=== PATIENT | female | born 1950 | race Caucasian/White ===

== ENCOUNTER → 2017-01-06 | Outpatient (CLI) | payer MEDICARE, OTHER ==
[~2017-01-06] VITALS: Ht 160 cm; Wt 86.2 kg
[~2017-01-06] MED LIST: ASPI1TAB PO; BILB30CA2 PO; CALC600T10 PO; CARV12.5 PO; CHLO25TA PO; CINN500C9 PO; CO Q100C10 PO; CORE25TA PO; DIGO0.25 PO; FISH100049 PO; FLEC50TA PO; FURO40TA2 PO; LEVO25TA5 PO; LIDOCAINE 2% INJ 100 MG/5 ML SDV (FOR ANES.) As Ordered ONE; LOSA100T36 PO; METF-699 PO; NEXI20CA PO; NS 1,000 ML IV SCH; OYST500T50 PO; PROPOFOL 200 MG/20 ML VIAL As Ordered ONE; SIMV10TA2 PO; SPIR25TA2 PO; XARE20TA PO
--- NOTE | 2017-01-06 07:46 | ROOR ---
Patient Name: Shira Rodas Procedure Date: 01/06/2017 7:29 AM Date of : 1950 Age: 66 Room: [facility] Gender: Female Note Status: Finalized Procedure: Upper GI endoscopy Indications: Follow-up of Jimenez's esophagus Providers: Jose Daniel RONQUILLO MD Referring MD: TY CRAWFORD MD Requesting Provider: Medicines: Monitored Anesthesia Care Complications: No immediate complications. Procedure: Pre-Anesthesia Assessment: - The heart rate, respiratory rate, oxygen saturations, blood pressure, adequacy of pulmonary ventilation, and response to care were monitored throughout the procedure. The Endoscope was introduced through the mouth, and advanced to the second part of duodenum. The upper GI endoscopy was accomplished without difficulty. The patient tolerated the procedure well. Findings: The Z-line was variable and was found 35 cm from the incisors. This was biopsied with a cold forceps for histology. The examined esophagus was normal. Small Hiatal Hernia. Multiple 5 to 6 mm semi-sessile fundic gland polyps were found in the gastric body. This was biopsied with a cold forceps for histology. The examined duodenum was normal. Impression: - Normal esophagus with Z-line variable, 35 cm from the incisors. Biopsied. - Small Hiatal Hernia. - Normal stomach with multiple fundic gland polyps. Biopsied. - Normal examined duodenum. Recommendation: - Observe patient's clinical course. - Continue present medications. - Follow an antireflux regimen. - Telephone endoscopist for pathology results in 2 weeks. Jose Daniel Ronquillo MD Jose Daniel RONQUILLO MD 01/06/2017 7:45:33 AM This report has been signed electronically. Number of Addenda: 0 Note Initiated On: 01/06/2017 7:29 AM Estimated Blood Loss: Estimated blood loss: none.
[2017-01-06 08:05] VITALS: BP 123/70
== END ==
LOC: M OPP 06:58
PROVIDERS: ATTEND Internal Medicine Gastroenterology
DX: Z09 Encounter for follow-up examination after completed treatment for conditions other than malignant neoplasm (principal); K22.70 Barrett's esophagus without dysplasia; K22.8 Other specified diseases of esophagus; K44.9 Diaphragmatic hernia without obstruction or gangrene; K31.7 Polyp of stomach and duodenum; I10 Essential (primary) hypertension; I48.91 Unspecified atrial fibrillation; E11.9 Type 2 diabetes mellitus without complications; M51.9 Unspecified thoracic, thoracolumbar and lumbosacral intervertebral disc disorder; E78.00 Pure hypercholesterolemia, unspecified; E03.9 Hypothyroidism, unspecified; M19.90 Unspecified osteoarthritis, unspecified site; Z96.651 Presence of right artificial knee joint; Z79.899 Other long term (current) drug therapy; Z79.84 Long term (current) use of oral hypoglycemic drugs; Z79.02 Long term (current) use of antithrombotics/antiplatelets; Z88.5 Allergy status to narcotic agent; Z88.8 Allergy status to other drugs, medicaments and biological substances

== ENCOUNTER → 2017-03-16 | Outpatient (CLI) | payer MEDICARE, OTHER ==
[~2017-03-16] MED LIST changes: -LIDOCAINE 2% INJ 100 MG/5 ML SDV (FOR ANES.) As Ordered ONE; -NS 1,000 ML IV SCH; -PROPOFOL 200 MG/20 ML VIAL As Ordered ONE
--- NOTE | 2017-03-16 13:21 | REPMRS ---
Patient History The patient states she had a clinical breast exam in December 2016. Patient is postmenopausal. Family history of breast cancer in maternal grandmother at age 55, unknown cancer in brother at age 47, colorectal cancer in paternal uncle at age 50 or over, and unknown cancer in paternal unspecified at age 1. Took hormonal contraceptives for 2 years. Took unspecified hormones for 2 years. Digital Mammo Screening Bilat: March 16, 2017 - Exam #: [id number] Bilateral CC and MLO view(s) were taken. Technologist: Noemí Parrish, Technologist Prior study comparison: February 28, 2016, bilateral digital mammo screening bilat performed at [facility]. October 05, 2014, bilateral bilat screen digital mammo, performed at [facility] ([facility]). August 25, 2013, bilateral bilat screen digital mammo, performed at [facility] ([facility]). FINDINGS: There are scattered fibroglandular densities. There has been no change in the appearance of the mammogram from the prior studies. There is a mild amount of scattered fibroglandular density which is fairly symmetric. There is no interval development of dominant mass, architectural distortion, or clustered microcalcification suggestive of malignancy. ASSESSMENT: BI-RADS/ACR category 1 mammogram. Negative. Recommendation Routine screening mammogram in 1 year (for women over age 40). This mammogram was interpreted with the aid of an FDA-approved computer-aided dectection system. Electronically Signed By: Nicholas Adam MD 03/16/17 [id number]
== END ==
LOC: M RAD 11:49
PROVIDERS: ATTEND Obstetrics & Gynecology
DX: Z12.31 Encounter for screening mammogram for malignant neoplasm of breast (principal); Z78.0 Asymptomatic menopausal state; Z80.3 Family history of malignant neoplasm of breast; Z92.0 Personal history of contraception; Z92.29 Personal history of other drug therapy; Z80.0 Family history of malignant neoplasm of digestive organs

== ENCOUNTER → 2018-02-16 | Outpatient (CLI) | payer MEDICARE, OTHER ==
[2018-02-16 12:18] LABS: BASO # 0.1 10^3/uL (0.0-0.2); BASO % 0.6 % (0.0-1.0); EOS # 0.2 10^3/uL (0.0-0.50); EOS % 1.7 % (0.0-3.0); HEMATOCRIT 36.9 % (36.0-47.0); HEMOGLOBIN 11.4 g/dl (12.0-15.5); IMMATURE GRANULOCYTE % 0.3 % (0-3.0); LYMPH # 2.1 10^3/uL (1.5-4.5); LYMPH % 20.5 % (24.0-44.0); MEAN CORPUSCULAR HEMOGLOBIN 25.7 pg (27.0-33.0); MEAN CORPUSCULAR HGB CONC 30.9 g/dl (32.0-36.5); MEAN CORPUSCULAR VOLUME 83.1 fl (80.0-96.0); MONO # 0.9 10^3/uL (0.0-0.8); MONO % 8.5 % (0.0-5.0); NEUTROPHILS # 7.1 10^3/uL (1.8-7.7); NEUTROPHILS % 68.4 % (36.0-66.0); PLATELET COUNT, AUTOMATED 389 10^3/uL (150-450); RED BLOOD COUNT 4.44 10^6/uL (4.00-5.40); RED CELL DISTRIBUTION WIDTH 13.9 % (11.5-14.5); WHITE BLOOD COUNT 10.4 10^3/uL (4.0-10.0)
[2018-02-16 13:08] LABS: IRON (FE) 42 UG/DL (50-170); PERCENT SATURATION 8.7 % (13.2-45.0); TOTAL IRON BINDING CAPACITY 481 UG/DL (250-450)
[2018-02-17 14:16] LABS: TISSUE TRANSGLUTAMINASE IgA <2 U/mL (0-3)
== END ==
LOC: M LAB 11:44
DX: D50.9 Iron deficiency anemia, unspecified (principal)
CPT/HCPCS: 83550

== ENCOUNTER 2018-03-08 09:53 | Day surgery (SDC) | payer MEDICARE, OTHER ==
[~2018-03-08 09:53] MED LIST changes: -ASPI1TAB PO; -BILB30CA2 PO; -CALC600T10 PO; -CARV12.5 PO; -CHLO25TA PO; -CINN500C9 PO; -CO Q100C10 PO; -CORE25TA PO; -DIGO0.25 PO; -FISH100049 PO; -FLEC50TA PO; -FURO40TA2 PO; -LEVO25TA5 PO; +LIDOCAINE 2% INJ 100 MG/5 ML SDV (FOR ANES.) As Ordered; -LOSA100T36 PO; -METF-699 PO; -NEXI20CA PO; -OYST500T50 PO; +PROPOFOL 500 MG/50 ML VIAL As Ordered; -SIMV10TA2 PO; -SPIR25TA2 PO; -XARE20TA PO
[2018-03-08] MEDS ORDERED: fentaNYL 100 MCG/2 ML INJECTION (J3010) As Ordered (10:11)
[2018-03-08] MEDS ORDERED: NS 1,000 ML IV (10:30)
== END 2018-03-08 11:40 | disposition home or self-care (01) ==
LOC: M OPP 09:53
DX: D50.9 Iron deficiency anemia, unspecified (principal); K22.8 Other specified diseases of esophagus; K31.7 Polyp of stomach and duodenum; I48.91 Unspecified atrial fibrillation; I10 Essential (primary) hypertension; E78.5 Hyperlipidemia, unspecified; Z86.19 Personal history of other infectious and parasitic diseases; Q24.9 Congenital malformation of heart, unspecified; E11.9 Type 2 diabetes mellitus without complications; E03.9 Hypothyroidism, unspecified; K44.9 Diaphragmatic hernia without obstruction or gangrene; K22.70 Barrett's esophagus without dysplasia; K21.9 Gastro-esophageal reflux disease without esophagitis; M19.90 Unspecified osteoarthritis, unspecified site; M54.5 Low back pain; B37.2 Candidiasis of skin and nail; G47.30 Sleep apnea, unspecified; R06.02 Shortness of breath; R06.83 Snoring; Z96.652 Presence of left artificial knee joint; Z88.5 Allergy status to narcotic agent; Z88.8 Allergy status to other drugs, medicaments and biological substances; Z79.01 Long term (current) use of anticoagulants; Z79.899 Other long term (current) drug therapy; Z79.84 Long term (current) use of oral hypoglycemic drugs; Z80.3 Family history of malignant neoplasm of breast; Z80.8 Family history of malignant neoplasm of other organs or systems; Z80.0 Family history of malignant neoplasm of digestive organs
CPT/HCPCS: 45378

== ENCOUNTER → 2018-03-19 | Outpatient (CLI) | payer MEDICARE, OTHER ==
[2018-03-19 17:43] LABS: ANION GAP 5 MEQ/L (8-16); BLOOD UREA NITROGEN 17 MG/DL (7-18); CALCIUM LEVEL 9.1 MG/DL (8.8-10.2); CARBON DIOXIDE LEVEL 31 MEQ/L (21-32); CHLORIDE LEVEL 108 MEQ/L (98-107); GLOMERULAR FILTRATION RATE > 60.0 (>39); GLUCOSE, FASTING 143 MG/DL (70-100); POTASSIUM SERUM 4.3 MEQ/L (3.5-5.1); SODIUM LEVEL 144 MEQ/L (136-145)
[2018-03-19 19:04] LABS: AMORPHOUS SEDIMENT LARGE (NEGATIVE); BACTERIA, URINE AUTO NEGATIVE (NEGATIVE); CALCIUM OXALATE CRYSTALS LARGE; MUCUS, URINE SMALL (NEGATIVE); RBC, URINE AUTO 5 /HPF (0-3); SQUAMOUS EPITHELIAL CELL UR AU 1 /HPF (0-6); WBC, URINE AUTO 1 /HPF (0-3)
== END ==
LOC: M SMT 14:08
DX: R31.9 Hematuria, unspecified (principal)
CPT/HCPCS: 80048

== ENCOUNTER → 2018-03-19 | Outpatient (CLI) | payer MEDICARE, OTHER | LOC: M RAD 11:03 | DX: Z12.31 Encounter for screening mammogram for malignant neoplasm of breast (principal); Z78.0 Asymptomatic menopausal state; Z92.0 Personal history of contraception; Z92.29 Personal history of other drug therapy; Z80.3 Family history of malignant neoplasm of breast; R31.9 Hematuria, unspecified | CPT/HCPCS: 77067 ==

== ENCOUNTER → 2018-04-06 | Outpatient (CLI) | payer MEDICARE, OTHER ==
[~2018-04-06] MED LIST changes: +ISOVUE-370 76% 100ML VIAL (Q9967) As Ordered; -LIDOCAINE 2% INJ 100 MG/5 ML SDV (FOR ANES.) As Ordered; -PROPOFOL 500 MG/50 ML VIAL As Ordered
== END ==
LOC: M RAD 11:12
DX: R31.9 Hematuria, unspecified (principal); K57.30 Diverticulosis of large intestine without perforation or abscess without bleeding; D35.00 Benign neoplasm of unspecified adrenal gland
CPT/HCPCS: Q9967

== ENCOUNTER → 2018-10-15 | Outpatient (CLI) | payer MEDICARE, OTHER | LOC: M RAD 12:51 | DX: I65.23 Occlusion and stenosis of bilateral carotid arteries (principal) | CPT/HCPCS: 93880 ==

== ENCOUNTER → 2019-03-24 | Outpatient (CLI) | payer MEDICARE, OTHER ==
[~2019-03-24] MED LIST changes: +ASPI81TA26 PO; +BILB30CA2 PO; +CALC600T31 PO; +CARV12.5 PO; +CHLO25TA PO; +CINN500C9 PO; +CO Q100C10 PO; +CORE25TA PO; +DIGO0.25 PO; +FISH100049 PO; +FLEC50HA PO; +FURO40TA2 PO; -ISOVUE-370 76% 100ML VIAL (Q9967) As Ordered; +LEVO25TA5 PO; +LOSA100T50 PO; +METF-699 PO; +NEXI20CA PO; +OYST500T50 PO; +PROBCAP4 PO; +PROT1TAB2 PO; +SIMV10TA2 PO; +SPIR-10 PO; +VITA-5 PO; +XARE20TA PO
--- NOTE | 2019-03-24 12:31 | REPMRS ---
Patient History The patient states she has not had a clinical breast exam in over a year. Family history of breast cancer at age 55 in maternal grandmother, unknown cancer at age 47 in brother, colorectal cancer at age 50 or over in paternal uncle, unknown cancer at age 1 in paternal unspecified relative. Took hormonal contraceptives for 2 years. Took unspecified hormones for 2 years. Digital Mammo Screening Bilat: March 24, 2019 - Exam #: [id number] Bilateral CC and MLO view(s) were taken. Technologist: Noemí Parrish, Technologist Prior study comparison: March 19, 2018, bilateral digital mammo screening bilat performed at [facility]. March 16, 2017, bilateral digital mammo screening bilat performed at [facility]. FINDINGS: There are scattered fibroglandular densities. There has been no change in the appearance of the mammogram from the prior studies. There is a mild amount of residual fibroglandular tissue which is fairly symmetric. There is no interval development of dominant mass, architectural distortion, or clustered microcalcification suggestive of malignancy. Assessment: BI-RADS/ACR category 1 mammogram. Negative Mammogram. Recommendation Routine screening mammogram in 1 year (for women over age 40). This mammogram was interpreted with the aid of an FDA-approved computer-aided dectection system. Electronically Signed By: Han Bell MD 03/24/19 [id number]
== END ==
LOC: M RAD 11:08
PROVIDERS: ATTEND Internal Medicine
DX: Z12.31 Encounter for screening mammogram for malignant neoplasm of breast (principal); Z80.3 Family history of malignant neoplasm of breast; Z80.0 Family history of malignant neoplasm of digestive organs

== ENCOUNTER → 2019-06-02 | Outpatient (REF) | payer MEDICARE, OTHER ==
[2019-06-02 18:15] LABS: BACTERIA, URINE AUTO NEGATIVE (NEGATIVE); RBC, URINE AUTO 5 /HPF (0-3); SQUAMOUS EPITHELIAL CELL UR AU 0 /HPF (0-6); WBC, URINE AUTO 2 /HPF (0-3)
== END ==
LOC: M SMT 17:28
PROVIDERS: ATTEND Specialist
DX: R31.9 Hematuria, unspecified (principal)
CPT/HCPCS: 81015; 87086; 88108; G0463

== ENCOUNTER → 2019-11-21 | Outpatient (CLI) | payer MEDICARE, OTHER ==
[~2019-11-21] MED LIST changes: -SIMV10TA2 PO; +SIMV10TA21 PO
== END ==
LOC: M WHC 12:52
PROVIDERS: ATTEND Registered Nurse
DX: M81.0 Age-related osteoporosis without current pathological fracture (principal)

== ENCOUNTER → 2019-12-06 | Outpatient (CLI) | payer MEDICARE, OTHER ==
--- NOTE | 2019-12-07 07:26 | REPVR ---
PROCEDURE INFORMATION: Exam: CT Maxillofacial Without Contrast, Sinus Exam date and time: 12/06/2019 3:02 PM Age: 69 years old Clinical indication: Sinusitis; Chronic; Additional info: Chronic pansinusitis TECHNIQUE: Imaging protocol: CT Maxillofacial without contrast. Focus on the sinuses. Radiation optimization: All CT scans at this facility use at least one of these dose optimization techniques: automated exposure control; mA and/or kV adjustment per patient size (includes targeted exams where dose is matched to clinical indication); or iterative reconstruction. COMPARISON: CT Maxilofacial w/out contrast 11/23/2015 1:07 PM FINDINGS: Frontal sinuses: There is mild mucosal thickening along the floor of the left frontal sinus. Ethmoid air cells: There is opacification of left anterior ethmoid air cells. Sphenoid sinuses: Normal. No air-fluid levels. Maxillary sinuses: There is opacification of the left maxillary sinus. The left maxillary sinus infundibulum is obscured by mucosal thickening. Orbits: Orbits are normal. Globes are unremarkable. Nasal cavity/Septum: Unremarkable. Soft tissues: Unremarkable. Bones/joints: Unremarkable. IMPRESSION: Left-sided sinus mucosal disease. Underline polyposis is difficult to exclude. Electronically signed by: Kristie Fong On 12/07/2019 07:25:47 AM
== END ==
LOC: M RAD 14:52
PROVIDERS: ATTEND Otolaryngology
DX: J32.4 Chronic pansinusitis (principal)

== ENCOUNTER → 2020-04-24 | Outpatient (CLI) | payer MEDICARE, OTHER ==
--- NOTE | 2020-04-24 15:12 | REP ---
BILATERAL MAMMOGRAM WITH 3D TOMOSYNTHESIS: Family history of breast cancer in maternal grandmother at age 55. [facility] lifetime risk of breast cancer 5.0%. Comparison mammogram 03/24/2019 as well as other prior exams. Bilateral mammography performed in the MLO and CC projections with 3D tomosynthesis. Mild scattered fibroglandular tissue is present bilaterally. Volpara breast density is B. I suspect a fairly smooth, well marginated oval nodule in the inferomedial right breast somewhat posteriorly. This has a maximum diameter of 5-6 mm. No other new mass or clustered microcalcifications are seen. IMPRESSION: BIRADS 0: BI-RADS/ACR category 0 mammogram, Incomplete: Need additional imaging evaluation and/or prior mammograms for comparison. ACR 0 incomplete. Possible new oval nodule inferomedially in the posterior right breast. Recommend spot compression views and ultrasound to further evaluate. This mammogram was interpreted with the aid of an FDA-approved computer-aided detection system. A. Negative x-ray reports should not delay biopsy if a dominant or clinically suspicious mass is present. B. Four to eight percent of cancers are not identified by x-ray. C. Adenosis and dense breasts may obscure an underlying neoplasm. The patient states she/he had a clinical breast exam in March 2020. The patient letter being requested is M0
== END ==
LOC: M WHC 12:31
PROVIDERS: ATTEND Obstetrics & Gynecology
DX: Z12.31 Encounter for screening mammogram for malignant neoplasm of breast (principal); Z80.3 Family history of malignant neoplasm of breast; R92.8 Other abnormal and inconclusive findings on diagnostic imaging of breast

== ENCOUNTER → 2020-05-10 | Outpatient (CLI) | payer MEDICARE, OTHER ==
[~2020-05-10] MED LIST changes: -METF-699 PO; +METF-817 PO
--- NOTE | 2020-05-10 16:04 | REP ---
DIAGNOSTIC MAMMOGRAM, RIGHT BREAST AND RIGHT BREAST ULTRASOUND: Spot compression views of the right breast performed and correlated with the recent mammogram of 04/24/2020. There is confirmed a smoothly marginated nodule in the medial right breast measuring 5-6 mm in diameter. This is somewhat inferior and is located proximally 6-7 cm from the nipple. Real-time sonographic evaluation of the right breast performed medially. There is a 5 mm hypoechoic nodule at that location measuring 5 mm in diameter. It is oval in shape and corresponds to the mammographic abnormality. There is no definite internal blood flow with Doppler evaluation. It is not definitely a simple cyst. IMPRESSION: BIRADS 4: BI-RADS/ACR category 4 mammogram. Suspicious Abnormality - biopsy should be considered. ACR 4 suspicious. A 5 mm well-circumscribed nodule inferomedial right breast corresponds to a hypoechoic nodule by ultrasound, not a simple cyst. This may be a complex cyst. Recommend ultrasound-guided sampling. Patient letter being requested is M4.
== END ==
LOC: M WHC 12:54
PROVIDERS: ATTEND Obstetrics & Gynecology
DX: Z12.31 Encounter for screening mammogram for malignant neoplasm of breast (principal); N63.15 Unspecified lump in the right breast, overlapping quadrants

== ENCOUNTER → 2020-05-17 | Outpatient (CLI) | payer MEDICARE, OTHER | LOC: M PLALAB 13:06 | PROVIDERS: ATTEND Surgery | DX: Z13.79 Encounter for other screening for genetic and chromosomal anomalies (principal) ==

== ENCOUNTER → 2020-05-23 | Outpatient (CLI) | payer MEDICARE, OTHER ==
[2020-05-23 14:48] VITALS: BP 122/78
--- NOTE | 2020-05-23 15:24 | REP ---
FOCUSED RIGHT BREAST ULTRASOUND: HISTORY: Mass lower inner quadrant right breast. FINDINGS: Sonographic guidance is provided to Dr. Buenrostro who performed ultrasound-guided needle biopsy procedure with marker clip placement.
--- NOTE | 2020-05-23 16:49 | REP ---
DIGITAL DIAGNOSTIC UNILATERAL RIGHT BREAST MAMMOGRAPHY WITH CAD: TWO VIEWS. HISTORY: Right breast mass. Post biopsy clip placement. Comparison mammography, April 24, 2020. FINDINGS: Craniocaudal and mediolateral views of the right breast demonstrate a needle biopsy marker clip in the right breast inferior and medial quadrant in the previously noted location of the nodular density. There is post biopsy change in the superolateral aspect of the right breast as well with some skin thickening laterally on the craniocaudal view. No hematoma is appreciated. IMPRESSION: Marker clip in good position. This mammogram was interpreted with the aid of an FDA-approved computer-aided detection system.
--- NOTE | 2020-07-26 18:46 | ROOPDOC ---
[facility] Report Of Operation Report of Operation This is a late entry note for the encounter from the date 05/23/20. Delay is due to major systemwide [facility] computer outage. Procedure Date: 05/23/20 Dx: right breast mass and right skin lesion Procedure: right breast ultrasound guided biopsy with clip placement and excisional biopsy of right breast skin lesion Findings: Postbiopsy clip is seen in the right breast mammogram in expected position. Right breast excised skin lesion is 1.5 x0.5cm. Surgeon: Quincy Chowdhury Lidocaine 1% LOT [id number] Expiration 04/2023 Sodium Bicarbonate 8.4% LOT [id number] Expiration 04/2021 Hydromark clip LOT [id number] Expiration 12/2022 REF: SHAPE 4 Bx device: BARD [id number] x10 cm LOT [id number] Expiration 12/2022 Informed consent was obtained for right breast ultrasound guided right breast mass biopsy and right breast skin lesion excision. Patients anticoagulation was held appropriately. The most common risk and possible complications including bleeding, hematoma, bruising, infection, injury to surrounding structures were explained to the patient and she expressed understanding. Patient was placed on the bed in the supine position. Appropriate time out was done stating patients name, date of , and the procedure to be performed. We started the procedure with the right breast ultrasound guided procedure. The right breast was prepped and draped in the usual fashion. The ultrasound was used to confirm the location of the lesion in the right lower inner breast. Plain Lidocaine 1% and 8.4% sodium bicarbonate 10:1 mix was used to anesthetize the skin, the biopsy site and tissues along the anticipated biopsy tract. Small skin incision was made with blade number 11. BARD Marquee 14G cannula with introducer ([id number]) was inserted through the incision and advanced under the ultrasound guidance to position immediately adjacent to the lesion. Next, the introducer was removed and BARD Marquee 14G biopsy device was places in the cannula. Pre-biopsy imaging, and post-biopsy imaging were captured. Five good core biopsies were taken at various levels of the lesion. Specimen was placed in formaldehyde, labeled with appropriate biopsy site and patients name, and sent to pathology for evaluation. Next, the biopsy device was withdrawn and a clip introducer was inserted into the biopsy site via the cannula. The SHAPE 4 Hydromark clip was deployed under sonographic guidance. Post-clip placement image was captured. Manual pressure over the biopsy cavity and tract was held after the clip introducer was withdrawn. No bleeding was noted upon removal of the pressure. Steri Strips were placed over the incision site. At this time, we proceeded with the right lateral breast skin excisional biopsy. The right breast was re-prepped and re-draped in the usual fashion. Plain Lidocaine 1% and 8.4% sodium bicarbonate 10:1 mix was used to anesthetize the skin at the planned excisional biopsy site. Scalpel #15 was used to make a small elliptical incision to excise the right breast lesion. The lesion was completely excised. The skin defect measured 1.5 x 0.5 cm. The specimen was placed in formaldehyde, labeled with appropriate biopsy site and patients name, and sent to pathology for evaluation. Manual pressure over the incision site was held. Adequate hemostasis was achieved. The incision was closed with 4-0 Monocryl in terrupted stitches. Steri strips were placed over the incision. Post-biopsy mammogram of the right breast was obtained and showed clip in expected position. Postprocedural dressing was placed. Patient tolerated procedure well. Discharge instructions were discussed with the patient and she expressed understanding. QUINCY CHOWDHURY DO Jul 26, 2020 18:46
== END ==
LOC: M WHCPRO 12:54
PROVIDERS: ATTEND Surgery
DX: N60.11 Diffuse cystic mastopathy of right breast (principal); D23.5 Other benign neoplasm of skin of trunk

== ENCOUNTER → 2020-09-24 | Outpatient (CLI) | payer MEDICARE, OTHER ==
--- NOTE | 2020-09-24 13:40 | REP ---
INDICATION: EVAL ORIGINAL BX TARGET,ABN RT MAMMO,RT MASS; EVAL ORIGINAL BX TARGET, ABN RT MAMMO, RT MASS. COMPARISON: 04/24/2020, 05/10/2020 and 05/23/2020. TECHNIQUE: MLO, mL and CC views right breast performed with tomosynthesis. Focused right breast ultrasound performed at 4 o'clock. FINDINGS: Mild fibroglandular tissue is again noted in the right breast. The previously noted oval smoothly marginated nodule in the inner right breast is no longer visualized status post ultrasound-guided biopsy. A biopsy clip is seen just anterior to the site of the prior nodule. No new nodule or clustered microcalcifications are seen. Focused right breast ultrasound at 4 o'clock demonstrates no evidence of the previously identified hypoechoic nodule. The biopsy clip is noted. IMPRESSION: BIRADS/ACR category 2 benign. Previously noted nodule has resolved both mammographically and sonographically. A biopsy clip is seen at 4 o'clock position right breast status post ultrasound-guided biopsy of the nodule. This mammogram was interpreted with the aid of an FDA-approved computer-aided detection system. The patient letter being requested is M 1. RECOMMENDATION: Recommend routine bilateral screening mammography April of 2021. <Electronically signed by Han Bell > 09/24/20 [id number]
== END ==
LOC: M WHC 10:36
PROVIDERS: ATTEND Surgery
DX: R92.8 Other abnormal and inconclusive findings on diagnostic imaging of breast (principal); Z97.8 Presence of other specified devices
CPT/HCPCS: 76642; 77065; G0279

== ENCOUNTER → 2021-02-18 | Outpatient (REF) | payer MEDICARE, OTHER ==
[2021-02-18 19:20] LABS: APPEARANCE, URINE CLEAR (CLEAR); BACTERIA, URINE AUTO NEGATIVE (NEGATIVE); BILIRUBIN, URINE AUTO NEGATIVE (NEGATIVE); BLOOD, URINE BLOOD 2+ (NEGATIVE); COLOR, URINE COLORLESS (YELLOW); GLUCOSE, URINE (UA) AUTO NEGATIVE (NEGATIVE); KETONE, URINE AUTO NEGATIVE (NEGATIVE); LEUKOCYTE ESTERASE, URINE AUTO NEGATIVE (NEGATIVE); NITRITE, URINE AUTO NEGATIVE (NEGATIVE); PROTEIN, URINE AUTO NEGATIVE (NEGATIVE); RBC, URINE AUTO 1 /HPF (0-3); SPECIFIC GRAVITY URINE AUTO 1.006 (1.002-1.035); SQUAMOUS EPITHELIAL CELL UR AU 1 /HPF (0-6); UROBILINOGEN, URINE AUTO 0.2 mg/dL (0.0-2.0); WBC, URINE AUTO 0 /HPF (0-3)
== END ==
LOC: M SMT 16:39
PROVIDERS: ATTEND Nurse Practitioner Women's Health
DX: R31.29 Other microscopic hematuria (principal)
CPT/HCPCS: 81001; 87086; G0463

== ENCOUNTER → 2021-05-24 | Outpatient (CLI) | payer MEDICARE, OTHER ==
--- NOTE | 2021-05-24 12:00 | REPMRS ---
Patient History The patient states she had a clinical breast exam in April 2021. Family history of breast cancer at age 55 in maternal grandmother, unknown cancer at age 47 in brother, colorectal cancer at age 50 or over in paternal uncle, unknown cancer at age 1 in paternal unspecified relative. Benign US guided breast biopsy. of the right breast, May 23, 2020. Took hormonal contraceptives for 2 years. Took unspecified hormones for 2 years. Patient states no breast complaints today. Patient has signed MRS History Sheet. Digital Woman Screen Mammo: May 24, 2021 - Exam #: [id number] Bilateral CC and MLO view(s) were taken. Technologist: Roya Quintanilla, Technologist Prior study comparison: September 24, 2020, right breast diagnostic unilateral mammo performed at [facility]. May 23, 2020, right breast diagnostic unilateral mammo performed at [facility]. April 24, 2020, bilateral digital woman screen mammo performed at [facility]. FINDINGS: There are scattered fibroglandular densities. The Volpara volumetric breast density category is:B. There is a needle biopsy marker clip again noted in the right breast unchanged. There is a stable nodular opacity in the left breast unchanged. There has been no change in the appearance of the mammogram from the prior studies. There is a mild amount of scattered fibroglandular density which is fairly symmetric. There is no interval development of dominant mass, architectural distortion, or grouped microcalcification suggestive of malignancy. 3-D tomosynthesis shows no additional findings. Assessment: BI-RADS/ACR category 2 mammogram. Benign Findings. Recommendation Routine screening mammogram of both breasts in 1 year (for women over age 40). This patient's [facility] Lifetime Breast Cancer Risk is estimated at 4.7 %. This mammogram was interpreted with the aid of an FDA-approved computer-aided dectection system. Electronically Signed By: Nicholas Adam MD 05/24/21 1200
== END ==
LOC: M WHC 11:02
PROVIDERS: ATTEND Obstetrics & Gynecology
DX: Z12.31 Encounter for screening mammogram for malignant neoplasm of breast (principal)

== ENCOUNTER → 2021-09-03 | Outpatient (REF) | payer MEDICARE, OTHER | LOC: M LAB REF 16:32 | PROVIDERS: ATTEND Internal Medicine | DX: I12.9 Hypertensive chronic kidney disease with stage 1 through stage 4 chronic kidney disease, or unspecified chronic kidney disease (principal); N18.31 Chronic kidney disease, stage 3a ==

== ENCOUNTER → 2021-12-04 | Outpatient (REF) | payer MEDICARE, OTHER ==
[~2021-12-04] MED LIST changes: +LOSA100T45 PO; -LOSA100T50 PO
[2021-12-04 16:54] LABS: BACTERIA, URINE AUTO NEGATIVE (NEGATIVE); RBC, URINE AUTO 0 /HPF (0-3); SQUAMOUS EPITHELIAL CELL UR AU 1 /HPF (0-6); WBC, URINE AUTO 0 /HPF (0-3)
== END ==
LOC: M LAB REF 16:32
PROVIDERS: ATTEND Internal Medicine
DX: R31.9 Hematuria, unspecified (principal)

== ENCOUNTER → 2021-12-05 | Outpatient (CLI) | payer MEDICARE, OTHER | LOC: M RAD 11:21 | PROVIDERS: ATTEND Physician Assistant | DX: I65.23 Occlusion and stenosis of bilateral carotid arteries (principal) ==

== ENCOUNTER → 2021-12-30 | Outpatient (CLI) | payer MEDICARE, OTHER | LOC: M LABSMTC 10:04 | PROVIDERS: ATTEND Anesthesiology | DX: Z01.812 Encounter for preprocedural laboratory examination (principal); Z20.822 Contact with and (suspected) exposure to COVID-19 ==

== ENCOUNTER 2022-01-03 06:45 | Day surgery (SDC) | payer MEDICARE, OTHER ==
[~2022-01-03] VITALS: Ht 157.5 cm; Wt 93.4 kg
[~2022-01-03 06:45] MED LIST changes: +CINN500C12 PO; +JARD1TAB PO; +LIDOCAINE 2% 100MG/5ML SDV (FOR ANES.) As Ordered ONE; +NS 1,000 ML IV ONE; +OMEP1CAP73 PO; +VITA100093 PO; +fentaNYL 100 MCG/2 ML INJECTION As Ordered ONE; +propofoL 200 MG/20 ML VIAL As Ordered ONE
[2022-01-03] MEDS ORDERED: ONDANSETRON 4MG/2ML VIAL IV ONE (09:30)
[2022-01-03] MEDS: SODIUM CHLORIDE 0.9% 1000ML IV SCH ×2 (09:35→09:40)
[2022-01-03 09:59] VITALS: BP 177/76
== END 2022-01-03 10:25 | disposition home or self-care (01) ==
LOC: M OPP 06:45
PROVIDERS: ATTEND Internal Medicine Gastroenterology
DX: K31.7 Polyp of stomach and duodenum (principal); K22.89 Other specified disease of esophagus; K22.70 Barrett's esophagus without dysplasia; R12 Heartburn; I50.9 Heart failure, unspecified; Z79.899 Other long term (current) drug therapy; Z88.4 Allergy status to anesthetic agent; Z88.5 Allergy status to narcotic agent; Z88.8 Allergy status to other drugs, medicaments and biological substances; Z80.0 Family history of malignant neoplasm of digestive organs; Z80.3 Family history of malignant neoplasm of breast; Z82.69 Family history of other diseases of the musculoskeletal system and connective tissue
CPT/HCPCS: 43239; 43251; 88305; J2405; J3010

== ENCOUNTER → 2022-01-09 | Outpatient (REF) | payer MEDICARE, OTHER ==
[~2022-01-09] MED LIST changes: -LIDOCAINE 2% 100MG/5ML SDV (FOR ANES.) As Ordered ONE; -NS 1,000 ML IV ONE; -fentaNYL 100 MCG/2 ML INJECTION As Ordered ONE; -propofoL 200 MG/20 ML VIAL As Ordered ONE
== END ==
LOC: M LAB REF 16:23
PROVIDERS: ATTEND Internal Medicine
DX: E11.65 Type 2 diabetes mellitus with hyperglycemia (principal); Z79.899 Other long term (current) drug therapy

== ENCOUNTER → 2022-04-23 | Outpatient (REF) | payer MEDICARE, OTHER ==
[2022-04-23 18:34] LABS: APPEARANCE, URINE CLEAR (CLEAR); BACTERIA, URINE AUTO NEGATIVE (NEGATIVE); BILIRUBIN, URINE AUTO NEGATIVE (NEGATIVE); BLOOD, URINE BLOOD 2+ (NEGATIVE); COLOR, URINE YELLOW (YELLOW); GLUCOSE, URINE (UA) AUTO 3+ mg/dL (NEGATIVE); KETONE, URINE AUTO NEGATIVE (NEGATIVE); LEUKOCYTE ESTERASE, URINE AUTO NEGATIVE (NEGATIVE); NITRITE, URINE AUTO NEGATIVE (NEGATIVE); PROTEIN, URINE AUTO NEGATIVE (NEGATIVE); RBC, URINE AUTO 1 /HPF (0-3); SQUAMOUS EPITHELIAL CELL UR AU 0 /HPF (0-6); UROBILINOGEN, URINE AUTO 0.2 mg/dL (0.0-2.0); WBC, URINE AUTO 1 /HPF (0-3)
== END ==
LOC: M LAB REF 16:17
PROVIDERS: ATTEND Obstetrics & Gynecology
DX: Z01.419 Encounter for gynecological examination (general) (routine) without abnormal findings (principal)

== ENCOUNTER → 2022-06-24 | Outpatient (CLI) | payer MEDICARE, OTHER | LOC: M WHC 10:34 | PROVIDERS: ATTEND Obstetrics & Gynecology | DX: Z12.31 Encounter for screening mammogram for malignant neoplasm of breast (principal) ==

== ENCOUNTER → 2022-12-15 | Outpatient (REF) | payer MEDICARE, OTHER ==
[2022-12-15 17:39] LABS: APPEARANCE, URINE MANUAL CLEAR (CLEAR); BILIRUBIN, URINE MANUAL NEGATIVE (NEGATIVE); BLOOD URINE MANUAL POSITIVE (NEGATIVE); COLOR, URINE MANUAL COLORLESS (YELLOW); GLUCOSE, URINE (UA) MANUAL 4+(1000 MG/DL) mg/dL (NEGATIVE); KETONE, URINE MANUAL NEGATIVE (NEGATIVE); LEUKOCYTE ESTERASE, URINE MAN NEGATIVE (NEGATIVE); NITRITE, URINE MANUAL NEGATIVE (NEGATIVE); PROTEIN, URINE MANUAL NEGATIVE (NEGATIVE); SPECIFIC GRAVITY,URINE MANUAL 1.015 (1.002-1.035); UROBILINOGEN, URINE MANUAL NORMAL (NORMAL)
[2022-12-15 18:38] LABS: SQUAMOUS EPITHELIAL CELL URINE SMALL AMOUNT /hpf (SMALL AMT); WBC, URINE 0-1 /hpf (0-3)
[2022-12-15 18:39] LABS: BACTERIA, URINE SMALL AMOUNT
== END ==
LOC: M LAB REF 16:23
PROVIDERS: ATTEND Internal Medicine
DX: R31.9 Hematuria, unspecified (principal)

== ENCOUNTER → 2023-03-27 | Outpatient (REF) | payer MEDICARE, OTHER ==
[~2023-03-27] MED LIST changes: -LOSA100T45 PO; +LOSA100T46 PO
[2023-03-27 12:49] LABS: APPEARANCE, URINE CLEAR (CLEAR); BACTERIA, URINE AUTO NEGATIVE (NEGATIVE); BILIRUBIN, URINE AUTO NEGATIVE (NEGATIVE); BLOOD, URINE BLOOD 2+ (NEGATIVE); COLOR, URINE STRAW (YELLOW); GLUCOSE, URINE (UA) AUTO 3+ mg/dL (NEGATIVE); KETONE, URINE AUTO NEGATIVE (NEGATIVE); LEUKOCYTE ESTERASE, URINE AUTO NEGATIVE (NEGATIVE); NITRITE, URINE AUTO NEGATIVE (NEGATIVE); PROTEIN, URINE AUTO NEGATIVE (NEGATIVE); RBC, URINE AUTO 1 /HPF (0-3); SPECIFIC GRAVITY URINE AUTO 1.006 (1.002-1.035); SQUAMOUS EPITHELIAL CELL UR AU 1 /HPF (0-6); UROBILINOGEN, URINE AUTO 0.2 mg/dL (0.0-2.0); WBC, URINE AUTO 1 /HPF (0-3)
== END ==
LOC: M LAB REF 12:10
PROVIDERS: ATTEND Internal Medicine
DX: R31.9 Hematuria, unspecified (principal)

== ENCOUNTER → 2023-06-26 | Outpatient (CLI) | payer MEDICARE, OTHER | LOC: M WHC 10:57 | PROVIDERS: ATTEND Internal Medicine | DX: Z12.31 Encounter for screening mammogram for malignant neoplasm of breast (principal) ==

== ENCOUNTER 2023-08-07 14:20 | Emergency (ER) | payer MEDICARE, OTHER ==
[~2023-08-07] VITALS: Ht 157.5 cm; Wt 95.8 kg
[2023-08-07 14:22] VITALS: BP 142/74; TEMP 98.2; O2SAT 95
== END 2023-08-07 18:22 | disposition home or self-care (01) ==
LOC: M ED 14:20
DX: S52.591A Other fractures of lower end of right radius, initial encounter for closed fracture (principal); S52.614A Nondisplaced fracture of right ulna styloid process, initial encounter for closed fracture; W19.XXXA Unspecified fall, initial encounter; Y92.481 Parking lot as the place of occurrence of the external cause; E11.9 Type 2 diabetes mellitus without complications; I48.91 Unspecified atrial fibrillation; Z79.01 Long term (current) use of anticoagulants; Z79.899 Other long term (current) drug therapy; Z88.5 Allergy status to narcotic agent; Z88.8 Allergy status to other drugs, medicaments and biological substances

== ENCOUNTER 2023-08-12 08:18 | Day surgery (SDC) | payer MEDICARE, OTHER ==
[~2023-08-12] VITALS: Ht 157.5 cm; Wt 96.7 kg
[~2023-08-12 08:18] MED LIST changes: +UNRESOLVED CLARIFICATION ENTRY XX SCH; +ceFAZolin SOD 2 GM in IV 1 EA IV ONE
[2023-08-12] MEDS ORDERED: LR 1,000 ML IV SCH (08:55)
[2023-08-12] MEDS ORDERED: MIDAZOLAM INJ 2MG/2ML VIAL IV PRN (09:40)
[2023-08-12] MEDS ORDERED: LIDOCAINE 1% SDV 5ML VIAL PN ONE (09:40)
[2023-08-12] MEDS ORDERED: ROPIvacaine 0.5% 30ML VIAL PN ONE (09:40)
[2023-08-12] MEDS ORDERED: fentaNYL 100 MCG/2 ML INJECTION IV PRN (09:40)
[2023-08-12] MEDS ORDERED: EPINEPHrine INJ 1 MG/ML 1ML AMP PN ONE (09:40)
[2023-08-12] MEDS ORDERED: dexAMETHasone 10MG/1ML VIAL PRES.FREE PN ONE (09:40)
[2023-08-12] MEDS: MIDAZOLAM INJ 2MG/2ML VIAL IV PRN ×2 (10:03→10:11)
[2023-08-12] MEDS ORDERED: SCOPOLAMINE 1MG TRANSDERMAL PATCH TOP ONE (11:10)
[2023-08-12] MEDS ORDERED: BACITRACIN OINTMENT 30GM TUBE As Ordered ONE (11:11)
[2023-08-12] MEDS ORDERED: ACETAMINOPHEN 1000MG 100ML IV BAG As Ordered ONE (11:47)
[2023-08-12] MEDS ORDERED: KETOROLAC 60MG 2ML VIAL As Ordered ONE (11:47)
[2023-08-12] MEDS ORDERED: MIDAZOLAM INJ 2MG/2ML VIAL As Ordered ONE (11:47)
[2023-08-12] MEDS ORDERED: dexmedeTOMIDine (4MCG/ML)200MCG/50ML BTL (PRECEDEX) As Ordered ONE (11:47)
[2023-08-12] MEDS ORDERED: LIDOCAINE 2% 100MG/5ML SDV (FOR ANES.) As Ordered ONE (11:47)
[2023-08-12] MEDS ORDERED: propofoL 200 MG/20 ML VIAL As Ordered ONE (11:47)
[2023-08-12] MEDS ORDERED: ONDANSETRON 4MG 2ML VIAL As Ordered ONE (11:47)
[2023-08-12] MEDS ORDERED: diphenhydrAMINE 50MG/ML VIAL IV PRN (12:35)
[2023-08-12] MEDS ORDERED: METOCLOPRAMIDE INJ 10MG/2ML VIAL IV PRN (12:35)
[2023-08-12] MEDS ORDERED: ONDANSETRON 4MG 2ML VIAL IV PRN (12:35)
[2023-08-12] MEDS ORDERED: MEPERIDINE 25 MG/ML 1ML VIAL IV PRN (12:35)
[2023-08-12] MEDS: fentaNYL 100 MCG/2 ML INJECTION IV PRN ×4 (13:03→13:25)
[2023-08-12] MEDS: oxyCODONE 5MG TAB PO PRN ×2 (13:06→13:38)
[2023-08-12] MEDS ORDERED: hydrALAZINE 20MG/ML 1ML VIAL IV ONE (13:25)
[2023-08-12 13:30] VITALS: BP 213/93
[2023-08-12 15:19] VITALS: BP 160/74; TEMP 97.4; O2SAT 96
== END 2023-08-12 17:47 | disposition home or self-care (01) ==
LOC: M SDC 08:18
PROVIDERS: ATTEND Orthopaedic Surgery Hand Surgery
DX: S52.551A Other extraarticular fracture of lower end of right radius, initial encounter for closed fracture (principal); X58.XXXA Exposure to other specified factors, initial encounter; Y92.89 Other specified places as the place of occurrence of the external cause; Y93.89 Activity, other specified; I48.91 Unspecified atrial fibrillation; E11.9 Type 2 diabetes mellitus without complications; G47.30 Sleep apnea, unspecified; I10 Essential (primary) hypertension; Z88.5 Allergy status to narcotic agent; Z88.8 Allergy status to other drugs, medicaments and biological substances; Z79.899 Other long term (current) drug therapy; Z79.01 Long term (current) use of anticoagulants
CPT/HCPCS: 25607; 76000; C1713; J0131; J0171; J0360; J0690; J1100; J1885; J2250; J2405; J2795; J3010

== ENCOUNTER → 2023-10-02 | Outpatient (CLI) | payer MEDICARE, OTHER ==
[~2023-10-02] MED LIST changes: -UNRESOLVED CLARIFICATION ENTRY XX SCH; -ceFAZolin SOD 2 GM in IV 1 EA IV ONE
== END ==
LOC: M SOG 07:53
PROVIDERS: ATTEND Physician Assistant
DX: Z53.9 Procedure and treatment not carried out, unspecified reason (principal)

== ENCOUNTER → 2023-10-05 | Outpatient (CLI) | payer MEDICARE, OTHER | LOC: M SOG 12:56 | PROVIDERS: ATTEND Physician Assistant | DX: S52.501D Unspecified fracture of the lower end of right radius, subsequent encounter for closed fracture with routine healing (principal); W18.30XD Fall on same level, unspecified, subsequent encounter ==

== ENCOUNTER → 2023-11-16 | Outpatient (CLI) | payer MEDICARE, OTHER | LOC: M SOG 08:17 | PROVIDERS: ATTEND Physician Assistant | DX: S52.501D Unspecified fracture of the lower end of right radius, subsequent encounter for closed fracture with routine healing (principal); Z87.81 Personal history of (healed) traumatic fracture ==

== ENCOUNTER → 2024-01-12 | Outpatient (REF) | payer MEDICARE, OTHER | LOC: M LAB REF 16:39 | PROVIDERS: ATTEND Internal Medicine | DX: M19.90 Unspecified osteoarthritis, unspecified site (principal) ==

== ENCOUNTER → 2024-01-19 | Outpatient (REF) | payer MEDICARE, OTHER ==
[2024-01-19 18:25] LABS: CREATININE, URINE 62.5 MG/DL
[2024-01-19 18:26] LABS: MALB URINE SIEMENS < 3.0 MG/L; MAU/CREAT RATIO 4.8 MCG/MG (0.0-30.0)
== END ==
LOC: M LAB REF 17:10
PROVIDERS: ATTEND Nurse Practitioner Family
DX: E11.65 Type 2 diabetes mellitus with hyperglycemia (principal)

== ENCOUNTER → 2024-02-02 | Outpatient (CLI) | payer MEDICARE, OTHER | LOC: M PLAIMG 13:32 | PROVIDERS: ATTEND Physician Assistant | DX: R06.02 Shortness of breath (principal); I50.32 Chronic diastolic (congestive) heart failure; I35.8 Other nonrheumatic aortic valve disorders ==

== ENCOUNTER → 2024-04-19 | Outpatient (REF) | payer MEDICARE, OTHER ==
[2024-04-19 17:56] LABS: APPEARANCE, URINE CLEAR (CLEAR); BACTERIA, URINE AUTO NEGATIVE (NEGATIVE); BILIRUBIN, URINE AUTO NEGATIVE (NEGATIVE); BLOOD, URINE BLOOD 1+ (NEGATIVE); COLOR, URINE YELLOW (YELLOW); GLUCOSE, URINE (UA) AUTO NEGATIVE (NEGATIVE); KETONE, URINE AUTO NEGATIVE (NEGATIVE); LEUKOCYTE ESTERASE, URINE AUTO NEGATIVE (NEGATIVE); NITRITE, URINE AUTO NEGATIVE (NEGATIVE); PROTEIN, URINE AUTO NEGATIVE (NEGATIVE); RBC, URINE AUTO 3 /HPF (0-3); SPECIFIC GRAVITY URINE AUTO 1.011 (1.002-1.035); SQUAMOUS EPITHELIAL CELL UR AU 1 /HPF (0-6); UROBILINOGEN, URINE AUTO 0.2 mg/dL (0.0-2.0); WBC, URINE AUTO 1 /HPF (0-3)
== END ==
LOC: M LAB REF 16:16
PROVIDERS: ATTEND Internal Medicine
DX: E31.9 Polyglandular dysfunction, unspecified (principal)

== ENCOUNTER → 2024-04-21 | Outpatient (CLI) | payer MEDICARE, OTHER | LOC: M RAD 15:34 | PROVIDERS: ATTEND Internal Medicine | DX: R53.83 Other fatigue (principal) ==

== ENCOUNTER → 2024-07-28 | Outpatient (CLI) | payer MEDICARE, OTHER | LOC: M SOG 07:22 | PROVIDERS: ATTEND Physician Assistant | DX: M25.561 Pain in right knee (principal) ==

== ENCOUNTER → 2024-08-04 | Outpatient (CLI) | payer MEDICARE, OTHER | LOC: M SOG 07:22 | PROVIDERS: ATTEND Physician Assistant | DX: M25.561 Pain in right knee (principal) ==

== ENCOUNTER → 2024-08-19 | Outpatient (CLI) | payer MEDICARE, OTHER | LOC: M SOG 07:18 | PROVIDERS: ATTEND Physician Assistant | DX: M25.572 Pain in left ankle and joints of left foot (principal) ==

== ENCOUNTER → 2024-09-21 | Outpatient (CLI) | payer MEDICARE, OTHER ==
[~2024-09-21] MED LIST changes: +METF-1156 PO; -METF-817 PO
== END ==
LOC: M WHC 16:21
PROVIDERS: ATTEND Internal Medicine
DX: Z12.31 Encounter for screening mammogram for malignant neoplasm of breast (principal)

== ENCOUNTER → 2025-09-04 | Outpatient (CLI) | payer MEDICARE, OTHER ==
[~2025-09-04] MED LIST changes: +CHRO400T4 PO; +CURC500C PO; +FLEC1TAB PO; +K2 P1TAB PO; +LOSA50TA28 PO; +METF-838 PO; +MULTTAB61 PO; +RA M500C PO; +TRUL10IN
== END ==
LOC: M PLAIMG 08:51
PROVIDERS: ATTEND Otolaryngology
DX: J32.8 Other chronic sinusitis (principal)

== ENCOUNTER → 2025-09-27 | Outpatient (CLI) | payer MEDICARE, OTHER | LOC: M WHC 11:24 | PROVIDERS: ATTEND Internal Medicine | DX: Z12.31 Encounter for screening mammogram for malignant neoplasm of breast (principal) ==